=== PATIENT | female | born 1975 | race Caucasian/White ===

== ENCOUNTER 2020-01-08 14:08 | Outpatient (CLI) | payer BC, SELFPAY ==
--- NOTE | 2020-01-08 14:23 | MM_ITS ---
WS: [id number] BILATERAL DIGITAL SCREENING MAMMOGRAPHY WITH CAD CLINICAL INFORMATION: SCREENING HISTORY: Screening mammogram. No current complaints. COMPARISON: October 03, 2018 TECHNIQUE: Bilateral CC and MLO views. FINDINGS: The breasts are composed of heterogeneous fibroglandular density tissue, which can limit the detectio n of small underlying mass lesions. No suspicious mass, asymmetry, calcifications, or architectural d istortion. No evidence of malignancy. MM/[place] [id number] IMPRESSION: BI-RADS: 1-Negative FOLLOW UP: 1 Year Follow-up Recommend return to annual screening mammography.
== END 2020-01-08 14:09 | disposition home or self-care (01) ==
LOC: RADSHAW 14:20
PROVIDERS: PCP Nurse Practitioner Family
DX: Z12.31 Encounter for screening mammogram for malignant neoplasm of breast (principal)
CPT/HCPCS: 77067

== ENCOUNTER 2021-01-07 14:44 | Outpatient (CLI) | payer OTHER, SELFPAY ==
--- NOTE | 2021-01-07 14:57 | MM_ITS ---
WS: [id number] BILATERAL SCREENING DIGITAL MAMMOGRAM WITH CAD HISTORY: SCREENING COMPARISON: 01/08/2020 and 10/03/2018 Bilateral CC and MLO views submitted. Computer aided detection analyzed. Breast composition: The breasts are heterogeneously dense, which may obscure small masses. No suspici ous masses, microcalcifications or architectural distortion. MM/[place] [id number] IMPRESSION: BI-RADS: 2-Benign FOLLOW UP: 1 Year Follow-up
== END 2021-01-07 14:45 | disposition home or self-care (01) ==
LOC: RADSHAW 14:54
PROVIDERS: PCP Nurse Practitioner Family
DX: Z12.31 Encounter for screening mammogram for malignant neoplasm of breast (principal)
CPT/HCPCS: 77067

== ENCOUNTER → 2021-01-31 10:22 | Outpatient (BNVA) | payer OTHER, SELFPAY | PROVIDERS: PCP Nurse Practitioner Family; Visit Provider Nurse Practitioner Family | DX: J06.9 Acute upper respiratory infection, unspecified (principal); Z20.822 Contact with and (suspected) exposure to COVID-19 | CPT/HCPCS: 87635 ==

== ENCOUNTER 2022-02-03 10:04 | Outpatient (CLI) | payer OTHER, SELFPAY ==
--- NOTE | 2022-02-03 10:20 | MM_ITS ---
WS: [id number] SCREENING DIGITAL BREAST TOMOSYNTHESIS MAMMOGRAM WITH CAD HISTORY: SCREENING COMPARISON: 01/07/2021, 01/08/2020 and 10/03/2018 Bilateral CC and MLO with tomosynthesis and synthetic mammography submitted. Computer aided detection analyzed. Breast composition: The breasts are heterogeneously dense, which may obscure small masses. Asymmetry in the posterior lateral RIGHT breast is just below the nipple line. There is no corresponding asymme try on the lateral projection. Increased soft tissue in the superior RIGHT breast seen on the lateral projection. MM/[place] [id number] IMPRESSION: BI-RADS: 0-Incomplete: Need additional imaging evaluation FOLLOW UP: Need Additional Imaging RIGHT breast: Spot compression views (CC and MLO). True ML. Ultrasound to follo w if abnormality persists.
== END 2022-02-03 10:05 | disposition home or self-care (01) ==
PROVIDERS: PCP Nurse Practitioner Family; Visit Provider Family Medicine
DX: Z12.31 Encounter for screening mammogram for malignant neoplasm of breast (principal)
CPT/HCPCS: 77063; 77067

== ENCOUNTER 2022-03-01 14:05 | Outpatient (CLI) | payer OTHER, SELFPAY ==
--- NOTE | 2022-03-01 | US_ITS ---
ADDITIONAL VIEWS RIGHT MAMMOGRAM WITH DIGITAL BREAST TOMOSYNTHESIS. RIGHT BREAST ULTRASOUND HISTORY: ABNORMAL MAMMO COMPARISON: 02/03/2022, 01/07/2021 and 01/08/2020 RIGHT MAMMOGRAM: Spot compression views and true ML with digital breast tomosynthesis and SM. Asymmetry in the central posterior RIGHT breast persists but becomes less dense. This asymmetry is not definitely seen on the lateral projections. Ultrasound is directed to the central breast. RIGHT BREAST ULTRASOUND 2-D and color Doppler imaging submitted. There is a very small cluster of cysts at 12:00 with mildly echogenic rodriguez. This cluster is 2 cm from the nipple and measures 7 x 3 mm. May not correspond to the mammographic abnormality. IMPRESSION: BI-RADS: 3-Probably Benign FOLLOW UP: 6 Month Follow-up Favor the changes in the RIGHT breast are probably benign. As these findings are new, 6 month follow-up is recommended to document stability. Ultrasound and mammographic follow-up recommended in 6 months. MELE
--- NOTE | 2022-03-01 14:17 | MM_ITS ---
WS: [id number] ADDITIONAL VIEWS RIGHT MAMMOGRAM WITH DIGITAL BREAST TOMOSYNTHESIS. RIGHT BREAST ULTRASOUND HISTORY: ABNORMAL MAMMO COMPARISON: 02/03/2022, 01/07/2021 and 01/08/2020 RIGHT MAMMOGRAM: Spot compression views and true ML with digital breast tomosynthesis and SM. Asymmetry in the central posterior RIGHT breast persists but becomes less dense. This asymmetry is no t definitely seen on the lateral projections. Ultrasound is directed to the central breast. RIGHT BREAST ULTRASOUND 2-D and color Doppler imaging submitted. There is a very small cluster of cysts at 12:00 with mildly echogenic rodriguez. This cluster is 2 cm fro m the nipple and measures 7 x 3 mm. May not correspond to the mammographic abnormality. MM/[place] [id number] IMPRESSION: BI-RADS: 3-Probably Benign FOLLOW UP: 6 Month Follow-up Favor the changes in the RIGHT breast are probably benign. As these findings ar e new, 6 month follow-up is recommended to document stability. Ultrasound and m ammographic follow-up recommended in 6 months.
== END 2022-03-01 14:06 | disposition home or self-care (01) ==
LOC: RAD 14:12
PROVIDERS: PCP Nurse Practitioner Family; Visit Provider Family Medicine
DX: R92.8 Other abnormal and inconclusive findings on diagnostic imaging of breast (principal)
CPT/HCPCS: 76642; 77061

== ENCOUNTER 2022-09-14 10:33 | Outpatient (CLI) | payer OTHER, SELFPAY ==
--- NOTE | 2022-09-14 | MM_ITS ---
WS: [id number] BILATERAL 3D TOMOSYNTHESIS DIGITAL DIAGNOSTIC MAMMOGRAPHY WITH CAD CLINICAL INFORMATION: 6 MO FOLLOW UP HISTORY: Six-month follow-up COMPARISON: March 01, 2022 TECHNIQUE: Bilateral CC, MLO, and ML views. FINDINGS: The breasts are composed of heterogeneously dense tissue, which can limit the detection of small unde rlying mass lesions. . Previously described central asymmetric density is less prominent today in the central posterior RIGHT breast. Parenchymal pattern is otherwise unchanged. Ultrasound described bel ow. No new suspicious findings. ULTRASOUND BREAST RIGHT TECHNIQUE: Ultrasound right breast focused area of concern. CLINICAL INFORMATION: 6 MO FOLLOW UP COMPARISON: March 01, 2022 FINDINGS: Ultrasound RIGHT breast at the 11:00 and 12:00 position. Normal underlying parenchymal tissue. Previo usly described cluster of cysts not longer visualized today. No underlying suspicious cystic or solid lesions. Findings are benign. Recommend return to annual screening mammography. MM/[place] [id number] IMPRESSION: BI-RADS: 2-Benign FOLLOW UP: 1 Year Follow-up Recommend return to annual screening mammography.
--- NOTE | 2022-09-14 10:45 | US_ITS ---
WS: [id number] BILATERAL 3D TOMOSYNTHESIS DIGITAL DIAGNOSTIC MAMMOGRAPHY WITH CAD CLINICAL INFORMATION: 6 MO FOLLOW UP HISTORY: Six-month follow-up COMPARISON: March 01, 2022 TECHNIQUE: Bilateral CC, MLO, and ML views. FINDINGS: The breasts are composed of heterogeneously dense tissue, which can limit the detection of small unde rlying mass lesions. . Previously described central asymmetric density is less prominent today in the central posterior RIGHT breast. Parenchymal pattern is otherwise unchanged. Ultrasound described bel ow. No new suspicious findings. ULTRASOUND BREAST RIGHT TECHNIQUE: Ultrasound right breast focused area of concern. CLINICAL INFORMATION: 6 MO FOLLOW UP COMPARISON: March 01, 2022 FINDINGS: Ultrasound RIGHT breast at the 11:00 and 12:00 position. Normal underlying parenchymal tissue. Previo usly described cluster of cysts not longer visualized today. No underlying suspicious cystic or solid lesions. Findings are benign. Recommend return to annual screening mammography. US/US breast RT limited* [id number] IMPRESSION: BI-RADS: 2-Benign FOLLOW UP: 1 Year Follow-up Recommend return to annual screening mammography.
== END 2022-09-14 10:34 | disposition home or self-care (01) ==
PROVIDERS: PCP Nurse Practitioner Family; Visit Provider Nurse Practitioner Family
DX: R92.8 Other abnormal and inconclusive findings on diagnostic imaging of breast (principal); N64.89 Other specified disorders of breast
CPT/HCPCS: 76642; 77061; 77065; G0279

== ENCOUNTER → 2022-12-15 10:26 | Outpatient (BNVA) | payer OTHER, SELFPAY | PROVIDERS: PCP Nurse Practitioner Family; Referring Provider Nurse Practitioner Family; Visit Provider Student in an Organized Health Care Education/Training Program | DX: R22.32 Localized swelling, mass and lump, left upper limb (principal); M79.642 Pain in left hand | CPT/HCPCS: 73130 ==

== ENCOUNTER 2022-12-22 11:43 | Outpatient (CLI) | payer OTHER, SELFPAY ==
--- NOTE | 2022-12-22 12:45 | USCV_ITS ---
Edie Gann Age: 47 Gender: F : 1975 Exam Date: 12/22/2022 12:24 Ordering Phys: Jc Foster MD (Andy) ([email or web address]) Technologist: Exam Location: [facility] [place] Indication: HISTORY: PROCEDURES: Bilateral duplex Venous Insufficiency study of the Deep and Superficial systems was carried out according to normal protocol with the patient in supine positon for deep system and dependent position for the superficial system. FINDINGS: All deep veins demonstrated compressibility without evidence of intraluminal thrombus or increased echogenicity. Spectral analysis of Doppler signals demonstrates normal response to compression maneuvers indicating patency without obstruction. Reflux determinations were made with the patient in the dependent position, the weight being on the contralateral leg. No notable reflux was seen at this time. The distal and the below-knee segments of the greater saphenous vein on the left side were not visualized well. No significant reflux were noted on either side CONCLUSIONS 1. No evidence of DVT and there was no identifiable veins 2. No significant venous reflux were noted either in the deep or in the superficial veins bilaterally 3. The distal and below-knee segments of the greater saphenous vein on the left side were not identified, possibly too small. Dr Ivan Goldberg MD [facility] (Electronically Signed) Final Date: 23 December 2022 07:31 S
== END 2022-12-22 11:44 | disposition home or self-care (01) ==
PROVIDERS: PCP Nurse Practitioner Family; Visit Provider Thoracic Surgery (Cardiothoracic Vascular Surgery)
DX: M79.606 Pain in leg, unspecified (principal)
CPT/HCPCS: 93970

== ENCOUNTER 2023-01-04 14:00 | Outpatient (CLI) | payer OTHER, SELFPAY ==
--- NOTE | 2023-01-04 14:30 | MR_ITS ---
WS: [email or web address] INDICATION: Painful mass LEFT hand. TECHNIQUE: MRI of the LEFT hand without gadolinium enhancement.Axial T1, axial T2, sagittal T2, coron al T1, coronal STIR, and coronal 3-D FSPGR. FINDINGS: In the area of palpable concern, deep to the palpable marker, there is a T2 hyperintense fl uid signal lobulated cystic lesion measuring approximately 11 x 10 x 24 mm AP by transverse by length . This is most compatible with a ganglion cyst. This extends from the palmar aspect of the carpal tammie nt distally along the carpal tunnel. Associated mass effect on the adjacent carpal tunnel. Mild degenerative narrowing at the radiocarpal joint. Subchondral cystic change involving the carpal bones. Scaphoid and lunate appear normal. Normal scapholunate interval. Normal visualized metacarpals . MR/MR hand LT wo con* [id number] IMPRESSION:. 1. Lobulated cystic lesion likely ganglion cyst in the area of concern describ ed above.
== END 2023-01-04 14:01 | disposition home or self-care (01) ==
PROVIDERS: PCP Nurse Practitioner Family; Visit Provider Student in an Organized Health Care Education/Training Program
DX: R22.32 Localized swelling, mass and lump, left upper limb (principal); M67.442 Ganglion, left hand
CPT/HCPCS: 73218

== ENCOUNTER 2024-02-07 11:58 | Outpatient (CLI) | payer OTHER, SELFPAY ==
--- NOTE | 2024-02-07 12:04 | MM_ITS ---
WS: [id number] BILATERAL SCREENING DIGITAL TOMOSYNTHESIS MAMMOGRAM WITH CAD HISTORY: SCREENING COMPARISON: 09/14/2022, 03/01/2022 Bilateral CC and MLO views with tomosynthesis and synthetic mammography submitted. Computer aided det ection analyzed. Breast composition: The breasts are heterogeneously dense, which may obscure small masses. No suspici ous masses, microcalcifications or architectural distortion. MM/[place] [id number] IMPRESSION: BI-RADS: 1-Negative FOLLOW UP: 1 Year Follow-up
== END 2024-02-07 11:59 | disposition home or self-care (01) ==
LOC: RAD 11:58
PROVIDERS: PCP Nurse Practitioner Family; Visit Provider Advanced Practice Midwife
DX: Z12.31 Encounter for screening mammogram for malignant neoplasm of breast (principal)
CPT/HCPCS: 77063; 77067

== ENCOUNTER 2025-02-20 12:42 | Outpatient (CLI) | payer OTHER, SELFPAY ==
--- NOTE | 2025-02-20 12:47 | MM_ITS ---
WS: [id number] BILATERAL 3D TOMOSYNTHESIS DIGITAL SCREENING MAMMOGRAPHY WITH CAD CLINICAL INFORMATION: SCREENING HISTORY: Screening mammogram. No current complaints. COMPARISON: 2023 TECHNIQUE: Bilateral CC and MLO views. FINDINGS: The breasts are composed of heterogeneous fibroglandular density tissue, which can limit the detection of small underlying mass lesions. No suspicious mass, asymmetry, calcifications, or architectural distortion. No evidence of malignancy. MM/MM scr tomosynthesis [id number] IMPRESSION: DENSITY: The breasts are heterogeneously dense, which may obscure small masses. BI-RADS: 1 - Negative FOLLOW UP: 1 Year Follow-up Recommend return to annual screening mammography.
== END 2025-02-20 12:43 | disposition home or self-care (01) ==
LOC: RAD 12:44
PROVIDERS: PCP Nurse Practitioner Family; Visit Provider Nurse Practitioner Family
DX: Z12.31 Encounter for screening mammogram for malignant neoplasm of breast (principal); R92.333 Mammographic heterogeneous density, bilateral breasts
CPT/HCPCS: 77063; 77067

== ENCOUNTER 2025-06-08 15:41 | Outpatient (CLI) | payer OTHER, SELFPAY ==
--- NOTE | 2025-06-08 15:45 | XRR_ITS ---
PROCEDURE INFORMATION: Exam: XR Lumbosacral Spine Exam date and time: 06/08/2025 3:52 PM Age: 50 years old Clinical indication: Low back pain; Lower sporadic back pain x few months. ; Additional info: Chronic low back pain TECHNIQUE: Imaging protocol: Radiologic exam of the lumbosacral spine. Views: 6 or more views. Including flexion and extension views. COMPARISON: No relevant prior studies available. FINDINGS: Bones/joints: Moderate L5-S1 disc space narrowing. No significant spurring. No fracture or dislocation.. No acute fracture. Normal alignment. Soft tissues: Unremarkable. XR/XR lumbar spine 6V w f/e [id number] IMPRESSION: No acute findings.
== END 2025-06-08 15:42 | disposition home or self-care (01) ==
PROVIDERS: PCP Nurse Practitioner Family; Visit Provider Nurse Practitioner Family
DX: M51.370 Other intervertebral disc degeneration, lumbosacral region with discogenic back pain only (principal)
CPT/HCPCS: 72114